=== PATIENT | female | born 1930 | race Caucasian/White ===

== ENCOUNTER 2017-03-18 15:18 | Inpatient (IN) | payer OTHER ==
[~2017-03-18] VITALS: Ht 162.5 cm; Wt 47.7 kg
--- NOTE | ~2017-03-18 | PR ---
[place], [place] PROGRESS NOTE NAME: [facility]ES [id number] UNIT #: [id number] ROOM: 310 DOCTOR: STEPH MEI MD BIRTHDATE: [birth year] DOS: 03/20/2017 INTERVAL NOTE CHIEF COMPLAINT: "Where what do I do." SUMMARY OF THE VISIT: The patient was interviewed as she rested quietly in bed. She awoke briefly and did engage in superficial conversation with me that was somewhat nonsensical. She was bright and pleasant and offered no other complaints. She did not exhibit any agitation or aggression. She does seem to be tolerating her current medication regimen well. On mental status, she is alert and oriented to self. It is unclear if she realizes she is in the hospital and she is certainly not oriented to time. Mood does seem to be slightly more euthymic. Affect more appropriate. There are no symptoms of hypomania or izabel. There are no overt auditory or visual hallucinations. No delusions are expressed. No paranoia is present. She does process conversation slowly and short term memory is exceedingly poor. PLAN: I will increase her Exelon patch from 4.6 mg to 9.5 mg daily and check a valproic acid level in the a.m. on tomorrow morning, engage in individual and pugh milieu activity, returning to her long-term care facility when psychiatrically stable. STEPH MEI MD CM:PNTRANS [id number] STEPH MEI MD 03/20/17 1154 interface
--- NOTE | ~2017-03-18 | PR ---
[place], [place] PROGRESS NOTE NAME: [id number] UNIT #: [id number] ROOM: 310 DOCTOR: STEPH MEI MD BIRTHDATE: [birth year] DOS: 03/21/2017 CHIEF COMPLAINT: "Good morning, how are you." SUMMARY OF THE VISIT: The patient was interviewed as she reclined in a Norma chair. She was resting at first, but did awaken easily and engaged readily in conversation. She was bright, pleasant, but very confused. Oftentimes, her responses made little to no sense. She was pleasant, however, and offered no complaints and there was no mood lability noted. She does seem to have some residual somnolence this morning and I will monitor this over the next 24-48 hours to see if this is something that will dissipate. MENTAL STATUS: She is alert and oriented to person. It is unclear if she understands that she is in the hospital and she is certainly not oriented to time. Mood does still seem to be somewhat labile, but improving. There are no symptoms of izabel or hypomania. There are no overt auditory or visual hallucinations. No delusions or paranoia are voiced. Short term memory is exceedingly poor and she processes information very slowly. PLAN: I will maintain her current dose of Depakote, her valproic acid level is therapeutic at 76.6. I will increase the Namenda from 5 mg b.i.d. to 5 mg in the morning and 10 mg at bedtime. Continue to engage in individual and pugh milieu activity with the ultimate plan to return to her long-term care facility when psychiatrically stable. STEPH MEI MD CM:PNTRANS [id number] STEPH MEI MD 03/21/17 1018 interface
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
--- NOTE | ~2017-03-18 | PR ---
[place], [place] PROGRESS NOTE NAME: [facility] [id number] UNIT #: [id number] ROOM: 310 DOCTOR: STEPH MEI MD BIRTHDATE: [birth year] DOS: 03/22/2017 CHIEF COMPLAINT: The patient was nonverbal. SUMMARY OF THE VISIT: The patient was attempted to be interviewed as she reclined in a Norma chair in the dining area. The patient was quite somnolent. She had been given p.r.n. in the instant print operator hours due to agitation and was still exhibiting residual somnolence. Nurses report, she continues to have periods of increased agitation and is very hard to redirect. It does, however, seem that the p.r.n. is too strong for her and not only does it calm her, but it seems to have a residual effect causing her to be excessively tired. MENTAL STATUS: Limited due to her somnolent status. PLAN: I will discontinue the Ativan p.r.n. at this point in time and I will change Depakote from 250 mg 3 times a day to 250 mg in the morning and 500 mg at night, utilizing a slightly higher nighttime dose to aid sleep. I will increase her Exelon patch from 9.5 to 13.3 mg a day maximizing potential benefit in improving and maintaining ADLs, behavior and cognition. We will continue to engage in individual and pugh milieu activity, returning to her long-term care facility when stable. STEPH MEI MD CM:PNTRANS [id number] STEPH MEI MD 03/22/17 1103 interface
[2017-03-18] MEDS ORDERED: VISTARIL25 M2 PO ×2 (16:22→16:23)
[2017-03-18] MEDS ORDERED: HYDROCODONE BIT1 T11 PO (16:22)
[2017-03-18] MEDS ORDERED: ZOLOFT50 MG PO (16:23)
[2017-03-18] MEDS ORDERED: ARICEPT5 M1 PO (16:24)
[2017-03-18 17:15] VITALS: BP 130/62
[2017-03-18 17:59] LABS: BASO % 0.5 % (0.0-1.0); EOS # 0.2 10*3/uL (0.0-0.4); EOS % 2.5 % (1.0-4.0); HEMATOCRIT 34.1 % (37.0-47.0); HEMOGLOBIN 10.9 g/dl (12.0-16.0); LYMPH # 1.1 10*3/uL (1.3-4.4); LYMPH % 18.8 % (27.0-41.0); MEAN CELL VOLUME 95.5 fl (81.0-99.0); MEAN CORPUSCULAR HGB 30.5 pg (27.0-31.0); MEAN PLATELET VOLUME 9.9 fl (9.6-12.3); MONO # 0.5 10*3/uL (0.1-1.0); MONO % 8.9 % (3.0-9.0); NEUT # 4.1 10*3/uL (2.3-7.9); NEUT % 68.8 % (47.0-73.0); PLATELET COUNT AUTOMATED 313 10*3/uL (130-400); RED BLOOD COUNT 3.57 10*6/uL (4.10-5.10); RED CELL DISTRI WIDTH 14.2 % (0-14.5)
[2017-03-18 18:17] LABS: ALBUMIN 2.9 gm/dl (3.1-4.5); ALKALINE PHOSPHATASE 173 U/L (45-117); BILIRUBIN, TOTAL 0.3 mg/dl (0.2-1.0); BUN 12 mg/dl (7-24); CARBON DIOXIDE 29 mmol/L (21-32); CHLORIDE 108 mmol/L (98-107); EST GLOM FILT AFRICAN AMERICAN > 60 ml/min; GLUCOSE 101 mg/dL (65-99); POTASSIUM 3.8 mmol/L (3.5-5.1); SGOT/AST 20 IU/L (3-35); SGPT/ALT 20 U/L (12-78); SODIUM 144 mmol/L (136-145); TOTAL PROTEIN 6.6 gm/dL (6.4-8.2)
[2017-03-18 18:22] LABS: HEMOGLOBIN A1c 5.2 % (4.8-5.6)
[2017-03-18 18:42] LABS: FOLIC ACID 13.23 ng/mL (>5.38); VITAMIN D, 25-HYDROXY 27.9 ng/mL (30-100)
[2017-03-18 18:45] VITALS: BP 130/62
[2017-03-18 18:49] LABS: BILIRUBIN NEGATIVE (NEGATIVE); BLOOD NEGATIVE (NEGATIVE); CLARITY SL CLOUDY (CLEAR); COLOR YELLOW (YELLOW); GLUCOSE NEGATIVE (NEGATIVE); KETONE NEGATIVE (NEGATIVE); LEUKO ESTERASE NEGATIVE (NEGATIVE); NITRITE NEGATIVE (NEGATIVE); PROTEIN NEGATIVE (NEGATIVE); SPECIFIC GRAVITY >= 1.030 (1.005-1.030)
[2017-03-18 18:56] LABS: BACTERIA 1+
[2017-03-18 18:57] LABS: URINE REFLEX COMMENT YES (NO)
[2017-03-18 19:34] VITALS: BP 136/73
[2017-03-19 08:08] VITALS: BP 146/60
[2017-03-19 20:00] VITALS: BP 145/50
[2017-03-20 07:55] VITALS: BP 127/72
[2017-03-20 19:46] VITALS: BP 139/54
[2017-03-21 07:44] VITALS: BP 144/51
[2017-03-21 20:08] VITALS: BP 142/61
[2017-03-22 08:05] VITALS: BP 132/68
[2017-03-22 20:00] VITALS: BP 138/63
[2017-03-23 08:00] VITALS: BP 148/52
[2017-03-23 20:00] VITALS: BP 148/90
[2017-03-24 09:59] VITALS: BP 130/51
[2017-03-24 20:13] VITALS: BP 108/64
[2017-03-25 07:51] VITALS: BP 132/54
[2017-03-25 20:16] VITALS: BP 130/53
[2017-03-26 08:08] VITALS: BP 126/73
[2017-03-26] MEDS ORDERED: EXELON13.3 MG/21 T (09:13)
[2017-03-26] MEDS ORDERED: MEMANTINE HCL10 MG PO (09:13)
[2017-03-26] MEDS ORDERED: VITAMIN D50000 I3 PO (09:13)
[2017-03-26] MEDS ORDERED: DIVALPROEX SOD125 M1 PO ×2 (09:13)
== END 2017-03-26 18:26 | DRG 57 ==
LOC: 3N 15:18
PROVIDERS: Psychiatry & Neurology Psychiatry
DX: G30.9 Alzheimer's disease, unspecified (principal); E44.0 Moderate protein-calorie malnutrition; F02.80 Dementia in other diseases classified elsewhere, unspecified severity, without behavioral disturbance, psychotic disturbance, mood disturbance, and anxiety; F23 Brief psychotic disorder; F33.9 Major depressive disorder, recurrent, unspecified; Z68.1 Body mass index [BMI] 19.9 or less, adult; D64.9 Anemia, unspecified; D72.810 Lymphocytopenia; M19.90 Unspecified osteoarthritis, unspecified site; H02.409 Unspecified ptosis of unspecified eyelid; K64.9 Unspecified hemorrhoids; H35.30 Unspecified macular degeneration; N60.19 Diffuse cystic mastopathy of unspecified breast; Z82.0 Family history of epilepsy and other diseases of the nervous system; Z88.1 Allergy status to other antibiotic agents; Z88.8 Allergy status to other drugs, medicaments and biological substances; Z79.1 Long term (current) use of non-steroidal anti-inflammatories (NSAID); Z79.899 Other long term (current) drug therapy; Z91.81 History of falling